=== PATIENT | male | born 1950 | race Caucasian/White ===

== ENCOUNTER 2016-12-17 13:51 | Inpatient (IN) | payer MEDICARE, BC ==
[2016-12-17] MEDS ORDERED: Lactated Ringers 1,000 ML IV SCH (15:00)
[2016-12-17] MEDS ORDERED: Cefepime 1 GM Vial IV SCH (15:45)
--- NOTE | 2016-12-17 15:49 | EDM.PDOC ---
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 He has been at home for the last 3 days sensorium was back to normal for about 24-36 hrs. and then today progressively gotten worse more confused is name did not know where he was at did not know the day continues to have fever wound has remained similar but has had increased edema in that leg he also has discharge of blood from his right ear this has continued. Urinalysis in clinic was unremarkable, chest x-ray done in clinic also shows no acute process - Related Data Allergies Allergy/AdvReac Type Severity Reaction Status Date / Time amoxicillin Allergy Rash Verified 12/17/16 15:04 Home Meds: Home Meds Acetic Acid [Acetic Acid 0.25%] 1 dose TOP ASDIRECTED 12/17/16 [History] Aspirin [Ecotrin] 1 tab PO DAILY 12/17/16 [History] Beclomethasone Dipropionate [Qvar 80 Mcg] 1 puff INH BID 12/17/16 [History] Cetirizine [ZyrTEC] 1 tab PO DAILY 12/17/16 [History] Doxycycline [Vibramycin] 1 cap PO BID 12/17/16 [History] Fish Oil/[place]-3 Fatty Acids [Fish Oil 1,000 MG] 2 cap PO DAILY 12/17/16 [ History] Fluticasone/Salmeterol [Advair Hfa 230-21 Mcg Inhaler] 2 puff INH BID 12/17/16 [ History] Folic Acid 1 tab PO DAILY 12/17/16 [History] Gabapentin [Neurontin] 2 cap PO TID 12/17/16 [History] Methotrexate 3 tab PO ASDIRECTED 12/17/16 [History] Metoprolol Tartrate [Lopressor] 1 tab PO BID 12/17/16 [History] Multivitamin [Multivitamins] 1 cap PO DAILY 12/17/16 [History] Omeprazole 1 cap PO DAILY 12/17/16 [History] oxyCODONE 2 cap PO Q4H PRN 12/17/16 [History] predniSONE [Prednisone] 1 tab PO DAILY 12/17/16 [History] valACYclovir [Valtrex] 1 tab PO BID 12/17/16 [History] Past Medical History Cardiovascular History: Reports: CAD, [place], Stents Respiratory History: Reports: Sleep Apnea Gastrointestinal History: Reports: GERD Genitourinary History: Reports: Chronic Renal Insuffiency, Urinary Incontinence , Other (See Below) Other Genitourinary History: stage 3 CKD Musculoskeletal History: Reports: Fracture Neurological History: Reports: Concussion Immunologic History: Reports: Other (See Below) Other Immunologic History: sarcoidosis Dermatologic History: Reports: Other (See Below) Other Dermatologic History: sarcoidosis. 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 - Past Surgical History HEENT Surgical History: Reports: LASIK, Tonsillectomy Cardiovascular Surgical History: Reports: Coronary Artery Stent GI Surgical History: Reports: Other (See Below) Male Surgical History: Reports: Other (See Below) Other Male Surgeries/Procedures: undescended testicle surgery at 12yrs old Social & Family History - Tobacco Use Smoking Status *Q: Never Smoker - Recreational Drug Use Recreational Drug Use: No ED ROS GENERAL - Review of Systems Review Of Systems: See Below Constitutional: Reports: Fever, Chills, Other (Confused) HEENT: Reports: Ear Discharge Respiratory: Reports: No Symptoms Cardiovascular: Reports: No Symptoms GI/Abdominal: Reports: No Symptoms : Reports: No Symptoms Musculoskeletal: Reports: Leg Pain Skin: Reports: Wound Neurological: Reports: Confusion ED EXAM, GENERAL - Physical Exam Exam: See Below Free Text/Narrative:: General: Elderly male, confused orientated 1 not in any distress HEENT: head is atraumatic normocephalic, eyes pupils equal round reactive to light, sclera clear no conjunctivitis appreciated. Ears clear and mckenzie on the left right tympanic membrane is obscured there is thick purulent drainage as well as dried blood in the canal the canal is swollen, nose: no septal deviation, nares are clear, no blood present. Mouth mucosa is dry and pink no erythema or exudate noted in soft palate, tongue is midline uvula is midline, dentition is intact. Neck: Supple no thyromegaly no tracheal deviation. Nodes: Cervical nodes subclavicular nodes nontender no palpable lymphadenopathy noted. Lungs: clear to auscultation bilaterally with symmetrical respirations, no adventitious noise appreciated. CV: Regular rate and rhythm S1 and S2 appreciated no murmurs rubs or gallops noted. Abdomen: Soft, nontender, no palpable masses or organomegaly appreciated, no distention no guarding bowel sounds are present,. Neuro: Cranial nerves II through XII grossly intact Skin: Multiple superficial wounds in various stages of healing appreciated on the left lower extremity Extremities: +2 pitting edema bilaterally Course - Vital Signs Last Recorded V/S: Last Vital Signs Temp 101.4 F H 12/17/16 16:51 Pulse 100 12/17/16 16:33 Resp 16 12/17/16 16:33 BP 102/81 12/17/16 16:33 Pulse Ox 92 L 12/17/16 16:33 - Orders/Labs/Meds Orders: Active Orders 24 hr Category Date Time Status Vital Signs [RC] Q1H Care 12/17/16 14:50 Active Vital Signs [RC] Q1H Care 12/17/16 15:44 Active Chest 2V [CR] Urgent Exams 12/17/16 15:52 Stop Req CULTURE BLOOD [BC] Urgent Lab 12/17/16 14:50 Received CULTURE BLOOD [BC] Urgent Lab 12/17/16 14:50 Received Cefepime [Maxipime] 2 gm Med 12/17/16 16:00 Active Sodium Chloride 0.9% [Normal Saline] 100 ml IV Q12H Lactated Ringers [Ringers, Lactated] 1,000 ml Med 12/17/16 15:00 Active IV ASDIRECTED Vancomycin 1.4 gm Med 12/17/16 17:00 Active Sodium Chloride 0.9% [Normal Saline] 250 ml IV Q12H Blood Culture x2 Reflex Set [OM.PC] Urgent Oth 12/17/16 14:50 Ordered Medication Orders Lactated Ringer's (Ringers, Lactated) 1,000 mls @ 500 mls/hr IV ASDIRECTED [facility] Last Admin: 12/17/16 15:06 Dose: 500 mls/hr Vancomycin HCl 1.4 gm/ Sodium (Chloride) 250 mls @ 150 mls/hr IV Q12H KIMBER Cefepime HCl 2 gm/ Sodium (Chloride) 100 mls @ 200 mls/hr IV Q12H [facility]BER Last Admin: 12/17/16 16:49 Dose: 200 mls/hr Labs: Laboratory Tests 12/17/16 12/17/16 12/17/16 Range/Units 14:50 14:50 14:50 WBC 6.4 (4.5-11.0) K/uL RBC 3.40 L (4.30-5.90) M/uL Hgb 10.6 L (12.0-15.0) g/dL Hct 33.2 L (40.0-54.0) % MCV 98 (80-98) fL MCH 31 (27-31) pg MCHC 32 (32-36) % Plt Count 188 (150-400) K/uL Neut % (Auto) 78 H (36-66) % Lymph % (Auto) 7 L (24-44) % [place] % (Auto) 13 H (2-6) % Eos % (Auto) 1 L (2-4) % Baso % (Auto) 1 (0-1) % Sodium 140 (140-148) mmol/L Potassium 4.1 (3.6-5.2) mmol/L Chloride 103 (100-108) mmol/L Carbon Dioxide 28 (21-32) mmol/L Anion Gap 9.2 (5.0-14.0) mmol/L BUN 20 H (7-18) mg/dL Creatinine 1.6 H (0.8-1.3) mg/dL Est Cr Clr Drug Dosing 40.98 mL/min Estimated GFR (MDRD) 43 L (>60) Glucose 121 H (74-106) mg/dL Lactic Acid 2.8 H (0.4-2.0) mmol/L Calcium 8.7 (8.5-10.1) mg/dL Total Bilirubin 0.8 (0.2-1.0) mg/dL AST 37 (15-37) U/L ALT 58 (12-78) U/L Alkaline Phosphatase 97 (46-116) U/L C-Reactive Protein 12.60 H (0.0-0.3) mg/dL Total Protein 6.6 (6.4-8.2) g/dL Albumin 2.6 L (3.4-5.0) g/dL Globulin 4.0 H (2.3-3.5) g/dL Albumin/Globulin Ratio 0.7 L (1.2-2.2) Meds: Medications Generic Name Dose Route Start Last Admin Trade Name Marilu PRN Reason Stop Dose Admin Lactated Ringer's 1,000 mls @ 500 mls/hr 12/17/16 15:00 12/17/16 15:06 Ringers, Lactated IV 500 mls/hr ASDIRECTED KIMBER Administration Vancomycin HCl 1.4 gm/ Sodium 250 mls @ 150 mls/hr 12/17/16 17:00 Chloride IV Q12H KIMBER Cefepime HCl 2 gm/ Sodium 100 mls @ 200 mls/hr 12/17/16 16:00 12/17/16 16:49 Chloride IV 200 mls/hr Q12H KIMBER Administration Discontinued Medications Generic Name Dose Route Start Last Admin Trade Name Marilu PRN Reason Stop Dose Admin Acetaminophen 650 mg 12/17/16 16:04 12/17/16 16:41 Tylenol PO 12/17/16 16:05 650 mg NOW ONE Administration Ciprofloxacin/Dexamethasone 1 ml 12/17/16 16:48 Ciprodex Otic Susp EARRT 12/17/16 16:49 NOW STA Vancomycin HCl 1 gm/ Sodium 250 mls @ 150 mls/hr 12/17/16 16:00 Chloride IV Q12H KIMBER - Re-Assessments/Exams Free Text/Narrative Re-Assessment/Exam: 12/17/16 16:15 heart score is 4 Departure - Departure Time of Disposition: 17:22 Disposition: Admitted As Inpatient 66 Condition: Fair Clinical Impression: Sepsis Qualifiers: Sepsis type: sepsis due to unspecified organism Qualified Code(s): A41.9 - Sepsis, unspecified organism - Discharge Information Forms: ED Department Discharge - My Orders Last 24 Hours: My Active Orders 12/17/16 14:50 Vital Signs [RC] Q1H CULTURE BLOOD [BC] Urgent CULTURE BLOOD [BC] Urgent Blood Culture x2 Reflex Set [OM.PC] Urgent 12/17/16 15:00 Lactated Ringers [Ringers, Lactated] 1,000 ml IV ASDIRECTED 12/17/16 15:44 Vital Signs [RC] Q1H 12/17/16 15:52 Chest 2V [CR] Urgent 12/17/16 16:00 Cefepime [Maxipime] 2 gm Sodium Chloride 0.9% [Normal Saline] 100 ml IV Q12H 12/17/16 17:00 Vancomycin 1.4 gm Sodium Chloride 0.9% [Normal Saline] 250 ml IV Q12H - Assessment/Plan Last 24 Hours: My Active Orders 12/17/16 14:50 Vital Signs [RC] Q1H CULTURE BLOOD [BC] Urgent CULTURE BLOOD [BC] Urgent Blood Culture x2 Reflex Set [OM.PC] Urgent 12/17/16 15:00 Lactated Ringers [Ringers, Lactated] 1,000 ml IV ASDIRECTED 12/17/16 15:44 Vital Signs [RC] Q1H 12/17/16 15:52 Chest 2V [CR] Urgent 12/17/16 16:00 Cefepime [Maxipime] 2 gm Sodium Chloride 0.9% [Normal Saline] 100 ml IV Q12H 12/17/16 17:00 Vancomycin 1.4 gm Sodium Chloride 0.9% [Normal Saline] 250 ml IV Q12H Plan: Assessment Acuity = acute Site and laterality = sepsis complicated in a patient with known history of pulmonary and cutaneous sarcoidosis with chronic wound in his left lower extremity with positive varicella-zoster biopsy Etiology = suspicious for bacterial cause Manifestations = fever, confusion Location of injury = Home Lab values = hemoglobin low at 10.6 consistent with normochromic anemia creatinine elevated at 1.6 consistent with acute renal failure stage G IIIB lactic acid elevated at 2.8 consistent lactic acidosis CRP mildly elevated 12.6 albumin low at 2.6 consistent hypoalbuminemia Plan He was given a 1 L fluid bolus challenge, started on cefepime and vancomycin blood cultures are pending discussed case with 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
[2016-12-17] MEDS ORDERED: Cefepime 2 GM in Sodium Chloride 0.9% 100 ML IV SCH (16:00)
[2016-12-17] MEDS ORDERED: Acetaminophen 325 MG Tab PO ONE (16:04)
[2016-12-17] MEDS ORDERED: Ciprofloxacin/Dexamethasone 0.3-0.1% Otic Susp 7.5 ML Bottle EARRT STA (16:48)
[2016-12-17] MEDS ORDERED: Vancomycin 1.4 GM in Sodium Chloride 0.9% 250 ML IV SCH (17:00)
[2016-12-17] MEDS ORDERED: Hydrocortisone/Neomycin/Polymyxin B Otic Susp 10 ML Bottle EARRT SCH (18:00)
--- NOTE | 2016-12-17 18:49 | PCM.HP ---
H&P History of Present Illness - General Date of Service: 12/17/16 Admit Problem/Dx: Admission Diagnosis/Problem Admission Diagnosis/Problem Fever Source of Information: Patient, Family, Old Records, Provider, RN Notes Reviewed History Limitations: Reports: No Limitations - History of Present Illness Initial Comments - Free Text/Narative: Mr. Degroot is a 66-year-old gentleman who is admitted through the emergency department with fever, confusion, and sepsis. He has had ongoing difficulty with ulcerations and lesions of his left lower leg for the past several months. Biopsy of the leg was done approximately 5 months ago and documented sarcoidosis on the anterior aspect. He is had a known history of sarcoidosis for the past several years and has been treated with prednisone in addition to methotrexate. Lesions on the leg persisted despite therapy and then he developed lesions on the posterior aspect the leg in early October. He was seen and evaluated in [place] where he was hospitalized, biopsy of the lesions confirmed herpes zoster. Was also associated bacterial infection with cellulitis , according to his they grow out Escherichia coli as well as Pseudomonas and he was treated with IV antibiotics. Since discharge from the hospital [place] they've returned to [place] and have been following with his primary care physician as well as dermatology at the [facility] in [place]. He was seen there approximately one week ago and felt to have ongoing difficulty with the herpes zoster and was started on Valcyclovir. 5 days prior to admission he developed significant temperature elevation associated with confusion, he was seen and evaluated in the clinic and referred to the emergency room at [facility] in [facility] for further specialty evaluation. He was hospitalized overnight and given IV vancomycin and cefepime area apparently the next morning was afebrile with a normal white count and was discharged home. He did relatively well through the weekend but today redeveloped significant temperature elevation and confusion. Evaluation in the clinic included a chest x -ray that was normal showing no obvious infiltrates and a normal urinalysis. He was then referred to the emergency department for further assessment. Laboratory studies are unremarkable, chronic kidney disease is stable, white blood cell count was normal, CRP was elevated at 12. Over the past week is also had bloody drainage from his right ear, he is status post tube placement in the ear 2-1/2 years ago. He denies significant pain in the ear or his head. - Related Data Allergies/Adverse Reactions: Allergies Allergy/AdvReac Type Severity Reaction Status Date / Time amoxicillin Allergy Rash Verified 12/17/16 15:04 Home Medications: Home Meds Acetic Acid [Acetic Acid 0.25%] 1 dose TOP ASDIRECTED 12/17/16 [History] Aspirin [Ecotrin] 1 tab PO DAILY 12/17/16 [History] Beclomethasone Dipropionate [Qvar 80 Mcg] 1 puff INH BID 12/17/16 [History] Cetirizine [ZyrTEC] 1 tab PO DAILY 12/17/16 [History] Doxycycline [Vibramycin] 1 cap PO BID 12/17/16 [History] Fish Oil/[place]-3 Fatty Acids [Fish Oil 1,000 MG] 2 cap PO DAILY 12/17/16 [ History] Fluticasone/Salmeterol [Advair Hfa 230-21 Mcg Inhaler] 2 puff INH BID 12/17/16 [ History] Folic Acid 1 tab PO DAILY 12/17/16 [History] Gabapentin [Neurontin] 2 cap PO TID 12/17/16 [History] Methotrexate 3 tab PO ASDIRECTED 12/17/16 [History] Metoprolol Tartrate [Lopressor] 1 tab PO BID 12/17/16 [History] Multivitamin [Multivitamins] 1 cap PO DAILY 12/17/16 [History] Omeprazole 1 cap PO DAILY 12/17/16 [History] oxyCODONE 2 cap PO Q4H PRN 12/17/16 [History] predniSONE [Prednisone] 1 tab PO DAILY 12/17/16 [History] valACYclovir [Valtrex] 1 tab PO BID 12/17/16 [History] Past Medical History Cardiovascular History: Reports: CAD, [place], Stents Respiratory History: Reports: Sleep Apnea Gastrointestinal History: Reports: GERD Genitourinary History: Reports: Chronic Renal Insuffiency, Urinary Incontinence , Other (See Below) Other Genitourinary History: stage 3 CKD Musculoskeletal History: Reports: Fracture Neurological History: Reports: Concussion Immunologic History: Reports: Other (See Below) Other Immunologic History: sarcoidosis Dermatologic History: Reports: Other (See Below) Other Dermatologic History: sarcoidosis. 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 - Past Surgical History HEENT Surgical History: Reports: LASIK, Tonsillectomy Cardiovascular Surgical History: Reports: Coronary Artery Stent GI Surgical History: Reports: Other (See Below) Male Surgical History: Reports: Other (See Below) Other Male Surgeries/Procedures: undescended testicle surgery at 12yrs old Social & Family History - Tobacco Use Smoking Status *Q: Never Smoker - Recreational Drug Use Recreational Drug Use: No H&P Review of Systems - Review of Systems: Review Of Systems: See Below General: Reports: Fever, Chills, Malaise, Weakness, Diaphoresis, Decreased Appetite HEENT: Reports: Other (Bloody drainage right ear). Denies: Ear Pain, Eye Pain, Headaches, Sinus Congestion, Sore Throat Pulmonary: Reports: Cough (Chronic). Denies: Shortness of Breath, Wheezing, Pleuritic Chest Pain, Sputum, Hemoptysis Cardiovascular: Reports: No Symptoms Gastrointestinal: Reports: No Symptoms Genitourinary: Reports: No Symptoms Musculoskeletal: Reports: No Symptoms Skin: Reports: Other (Several relatively large ulcers of the posterior and anterior aspect of the right lower leg) Psychiatric: Reports: Confusion, Hallucinations Neurological: Reports: No Symptoms Hematologic/Lymphatic: Reports: No Symptoms Immunologic: Reports: No Symptoms Exam - Exam Exam: See Below - Vital Signs Vital Signs: Last Vital Signs Temp 101.4 F H 12/17/16 16:51 Pulse 100 12/17/16 16:33 Resp 16 12/17/16 16:33 BP 102/81 12/17/16 16:33 Pulse Ox 92 L 12/17/16 16:33 Weight: 204 lb - Exam Quality Assessment: DVT Prophylaxis HEENT: Conjunctiva Clear, Mucosa Moist & [place], Nares Patent, Normal Nasal Septum , Posterior Pharynx Clear, Pupils Equal, Other (Bloody drainage from the right ear with inflammation in the external auditory canal) Neck: Supple, Trachea Midline, +2 Carotid Pulse wo Bruit Lungs: Clear to Auscultation, Normal Respiratory Effort Cardiovascular: Regular Rate, Regular Rhythm, Normal S1, Normal S2. No: Systolic Murmur, Diastolic Murmur GI/Abdominal Exam: Normal Bowel Sounds, Soft, Non-Tender, No Organomegaly, No Distention, No Mass Back Exam: Normal Inspection, Full Range of Motion, NT Extremities: Normal Range of Motion, Pedal Edema, Redness, Other (Ulcers right lower leg) Skin: Warm, Dry, Intact Neurological: Cranial Nerves Intact, Strength Equal Bilateral, Normal Speech, Normal Tone, Sensation Intact. No: Focal Deficit Neuro Extensive - Mental Status: Alert, Oriented x3, Normal Mood/Affect, Memory Loss-Recent Events Psychiatric: Hallucinations - Patient Data Result Diagrams: 12/17/16 14:50 12/17/16 14:50 *Q Meaningful Use (ADM) - VTE *Q VTE Criteria *Q: - VTE Risk Assess *Q Each Risk Factor Represents 1 Point: Swollen Legs, Current, Obesity (BMI greater than 30), Sepsis, Less than 1 Month, Serious Lung Disease Including Pneumonia, Less than 1 Month Total Score 1 Point Risk Factors: 4 Each Risk Factor Represents 2 Points: Age 60 - 74 Years Total Score 2 Point Risk Factors: 2 Each Risk Factor Represents 3 Points: None Total Score 3 Point Risk Factors: 0 Each Risk Factor Represents 5 Points: None Total Score 5 Point Risk Factors: 0 Venous Thromboembolism Risk Factor Score *Q: 6 - Stroke *Q Stroke Criteria *Q: - AMI *Q AMI Criteria *Q: Problem List Initiated/Reviewed/Updated: Yes Orders Last 24hrs: Active Orders 24 hr Category Date Time Status Resuscitation Status Routine Resus Stat 12/17/16 18:06 Ordered Medication Orders Lactated Ringer's (Ringers, Lactated) 1,000 mls @ 500 mls/hr IV ASDIRECTED [facility] Last Admin: 12/17/16 15:06 Dose: 500 mls/hr Vancomycin HCl 1.4 gm/ Sodium (Chloride) 250 mls @ 150 mls/hr IV Q12H [facility] Last Admin: 12/17/16 17:22 Dose: 150 mls/hr Cefepime HCl 2 gm/ Sodium (Chloride) 100 mls @ 200 mls/hr IV Q12H [facility] Last Admin: 12/17/16 16:49 Dose: 200 mls/hr Neomycin/Polymyxin/Hydrocortisone (Cortisporin Otic Susp) 0 ml EARRT QID [facility] Last Admin: 12/17/16 18:12 Dose: 4 drop Assessment/Plan Comment:: ASSESSMENT AND PLAN FEVER AND SEPSIS-history over the past several months of ulcerations involving the right lower leg. This would seem to be the most likely source of ongoing infection, ulcers appear to be healing and there does not appear to be associated infection in the skin. He also has a history over the past week of bloody drainage from his right ear although there is no tenderness and no associated headache or pain. On examination the external auditory canal appears to be inflamed. No other obvious source of infection is been identified on current evaluation. -Broad-spectrum IV antibiotics; vancomycin, cefepime, and levofloxacin. Given recent history of antibiotic use with Pseudomonas cultured in [place]. -Blood cultures pending -CT scan of the head to evaluate for infection associated with right ear drainage -Aggressive IV fluid replacement per sepsis protocol -Repeat lactic acid level later this evening CHRONIC LEG ULCERATIONS RIGHT LOWER LEG-present for some time, no evidence of obvious cellulitis at this point. Question as to whether there could be deeper seated infection -Will ask Dr. Herring to review in a.m. for recommendations concerning ongoing management -Hold valacyclovir BLOODY DRAINAGE RIGHT EAR-at a minimum appears to have otitis externa area -CT scan as above -Cortisporin optic solution 4 times daily HISTORY OF SARCOIDOSIS-previous lung involvement as well as kidney involvement, biopsies from the anterior aspect of the right lower leg showed evidence of active sarcoidosis. -Continue methotrexate and prednisone CHRONIC KIDNEY DISEASE STAGE III-creatinine at baseline -Closely monitor urine output and renal function during hospital stay MAINTENANCE ISSUES -DVT prophylaxis; Lovenox 40 mg subcutaneous daily -GI prophylaxis; continue outpatient PPI therapy -Moody catheter; not indicated -Nutrition; regular diet -Nicotine dependence; not required CODE STATUS-FULL CODE ADMISSION STATUS-patient will be admitted to inpatient status, expect at least a 2 night hospital stay for evaluation and management of problems as outlined above. At the time of this admission I do not reasonably expected evaluation and management of this problem will require more than a 96 hour hospital stay. DISPOSITION-anticipate discharge to home after the hospital stay. PRIMARY CARE PROVIDER-patient receives primary care and subspecialty care at the [facility] in [place]
[2016-12-17] MEDS ORDERED: Ondansetron 4 MG/2 ML SDV IV PRN (19:28)
[2016-12-17] MEDS ORDERED: Lactated Ringers 500 ML IV SCH (19:28)
[2016-12-17] MEDS ORDERED: Sodium Chloride 0.9% 10 ML Syringe FLUSH PRN (19:28)
[2016-12-17] MEDS ORDERED: Polyethylene Glycol 3350 Powder 17 GM Packet PO PRN (19:28)
[2016-12-17] MEDS ORDERED: Enoxaparin 40 MG/0.4 ML Syringe SUBCUT SCH (19:28)
[2016-12-17] MEDS ORDERED: Magnesium Hydroxide 400 MG/5 ML Susp 30 ML Cup PO PRN (19:28)
[2016-12-17] MEDS ORDERED: Vancomycin 1 GM SDV IV SCH (19:28)
[2016-12-17] MEDS ORDERED: Docusate Sodium 100 MG Cap PO PRN (19:28)
[2016-12-17] MEDS ORDERED: Levofloxacin/Dextrose 5%-Water 500 MG in Premix Bag 1 BAG IV SCH (20:00)
[2016-12-17] MEDS: Metoprolol Tartrate 50 MG Tab PO SCH (21:15)
[2016-12-17] MEDS: Gabapentin 100 MG Cap PO SCH (21:15)
[2016-12-17] MEDS: Melatonin 3 MG Tab PO SCH (21:15)
[2016-12-17] MEDS: Hydrocortisone/Neomycin/Polymyxin B Otic Susp 10 ML Bottle EARBOTH SCH (21:17)
[2016-12-17] MEDS: Formoterol/Mometasone 200-5 MCG 8.8 GM Inhaler IH SCH (21:33)
[2016-12-17] MEDS: Lactated Ringers 1,000 ML IV SCH (22:40)
[2016-12-18] MEDS: oxyCODONE 5 MG Tab PO PRN (04:15)
[2016-12-18] MEDS: Cefepime 1 GM in Sodium Chloride 0.9% 50 ML IV SCH ×2 (04:33→16:38)
[2016-12-18] MEDS: Hydrocortisone/Neomycin/Polymyxin B Otic Susp 10 ML Bottle EARBOTH SCH ×4 (06:22→21:15)
[2016-12-18] MEDS: Lactated Ringers 1,000 ML IV SCH (07:03)
[2016-12-18] MEDS: Acetaminophen 325 MG Tab PO PRN ×3 (07:55→16:46)
[2016-12-18] MEDS ORDERED: predniSONE 5 MG Tab PO SCH (08:00)
[2016-12-18] MEDS: Vancomycin 1.4 GM in Sodium Chloride 0.9% 250 ML IV SCH ×2 (08:29→19:35)
[2016-12-18] MEDS: Metoprolol Tartrate 50 MG Tab PO SCH ×2 (08:30→21:16)
[2016-12-18] MEDS: Pantoprazole 40 MG Tab.CR PO SCH (08:30)
[2016-12-18] MEDS: Gabapentin 100 MG Cap PO SCH ×3 (08:31→21:16)
[2016-12-18] MEDS: Albuterol 0.083% 2.5 MG/3 ML Neb Soln NEB PRN (08:57)
[2016-12-18] MEDS ORDERED: Aspirin 325 MG Tab.EC PO SCH (09:00)
[2016-12-18] MEDS ORDERED: Folic Acid 1 MG Tab PO SCH (09:00)
[2016-12-18] MEDS ORDERED: Cetirizine 10 MG Tab PO SCH (09:00)
[2016-12-18] MEDS ORDERED: Fish Oil/Omega-3 Fatty Acids 1 Gm Cap PO SCH (09:00)
[2016-12-18] MEDS: QVAR 80 MCG INH SCH ×2 (09:01→21:15)
[2016-12-18] MEDS: ADVAIR INH SCH ×2 (09:02→21:15)
[2016-12-18] MEDS ORDERED: Gadoteridol 279.3 MG/ML 20 ML SDV IV PRN ×2 (10:14→14:01)
[2016-12-18] MEDS: Magnesium Sulfate/Water 2 GM in Premix Bag 1 BAG IV SCH ×2 (11:06→17:27)
[2016-12-18] MEDS: Formoterol/Mometasone 200-5 MCG 8.8 GM Inhaler IH SCH (11:27)
--- NOTE | 2016-12-18 14:32 | MR ---
Left leg MRI. History: Eval for infection. Technique: The lower extremities were evaluated in the coronal, sagittal, and axial planes utilizing T1 pre and postcontrast with and without fat saturation and T2 with fat saturation techniques. Findings: There is subcutaneous edema bilaterally. At the level of the distal left leg and ankle is a fluid collection which encompasses the vascular structures at the ankle measuring 2.8 x 1.7 x 4.7 cm. The adjacent muscles demonstrate normal signal. There is no encapsulation or evidence for enhanc ement to suggest abscess. There are no findings of myositis. There is normal marrow signal within th e bones. Impression: 1. Bilateral subcutaneous edema. No evidence for abscess. 2. Nonspecific fluid collection at the level of the ankle which is intramuscular. The fluid is likel y related to the subcutaneous edema.
--- NOTE | 2016-12-18 16:29 | PCM.PN ---
- General Info Date of Service: 12/18/16 Functional Status: Reports: Tolerating Diet, Urinating - Review of Systems General: Reports: Fever, Weakness, Chills Pulmonary: Reports: No Symptoms Cardiovascular: Reports: No Symptoms Gastrointestinal: Reports: No Symptoms Systems Review Comment:: Mr. Degroot has continued to experience fevers, vital signs have stabilized since admission with no further evidence of sepsis. MRI of the left lower leg was obtained today and showed no evidence of deep-seated infection, abscess or osteomyelitis. CT scan of the head obtained last night showed no area of infection associated with the right ear. Drainage from the right ear seems to be better since admission. Dr. Herring saw the patient this morning and did not feel that ulcers in the left leg were source of current infection or fever. - Patient Data Vitals - Most Recent: Last Vital Signs Temp 99.8 F 12/18/16 14:27 Pulse 93 12/18/16 15:20 Resp 24 H 12/18/16 15:20 BP 131/82 12/18/16 15:20 Pulse Ox 91 L 12/18/16 15:20 Weight - Most Recent: 204 lb 0.005 oz I&O - Last 24 Hours: Intake & Output 12/18/16 12/18/16 12/18/16 06:59 14:59 22:59 Intake Total 660 Output Total 650 125 Balance -650 535 Lab Results Last 24 Hours: Laboratory Results - last 24 hr 12/17/16 12/18/16 12/18/16 Range/Units 22:00 04:20 04:20 WBC 5.5 (4.5-11.0) K/uL RBC 3.24 L (4.30-5.90) M/uL Hgb 10.0 L (12.0-15.0) g/dL Hct 31.5 L (40.0-54.0) % MCV 97 (80-98) fL MCH 31 (27-31) pg MCHC 32 (32-36) % Plt Count 181 (150-400) K/uL Neut % (Auto) 71 H (36-66) % Lymph % (Auto) 11 L (24-44) % Dougherty % (Auto) 16 H (2-6) % Eos % (Auto) 1 L (2-4) % Baso % (Auto) 0 (0-1) % Sodium 141 (140-148) mmol/L Potassium 4.0 (3.6-5.2) mmol/L Chloride 105 (100-108) mmol/L Carbon Dioxide 29 (21-32) mmol/L Anion Gap 7.1 (5.0-14.0) mmol/L BUN 20 H (7-18) mg/dL Creatinine 1.5 H (0.8-1.3) mg/dL Est Cr Clr Drug Dosing 43.71 mL/min Estimated GFR (MDRD) 47 L (>60) Glucose 97 (74-106) mg/dL Lactic Acid 1.9 (0.4-2.0) mmol/L Calcium 8.6 (8.5-10.1) mg/dL Magnesium 1.6 L (1.8-2.4) mg/dL Med Orders - Current: Current Medications Acetaminophen (Tylenol) 650 mg PO Q4H PRN PRN Reason: Pain (Mild 1-3)/fever Last Admin: 12/18/16 11:48 Dose: 650 mg Acetic Acid (Acetic Acid 0.25%) 0 ml IRR BID [facility] Albuterol (Proventil Neb Soln) 2.5 mg NEB Q4H PRN PRN Reason: Shortness Of Breath/wheezing Last Admin: 12/18/16 08:57 Dose: 2.5 mg Aspirin (Ecotrin) 325 mg PO DAILY [facility] Last Admin: 12/18/16 08:30 Dose: 325 mg Cetirizine HCl (Zyrtec) 10 mg PO DAILY [facility] Last Admin: 12/18/16 08:31 Dose: 10 mg Docusate Sodium (Colace) 100 mg PO BID PRN PRN Reason: Constipation Fish Oil (Fish Oil) 2 gm PO DAILY [facility] Last Admin: 12/18/16 08:30 Dose: 2 gm Folic Acid (Folic Acid) 1 mg PO DAILY [facility] Last Admin: 12/18/16 08:30 Dose: 1 mg Gabapentin (Neurontin) 200 mg PO TID [facility] Last Admin: 12/18/16 14:30 Dose: 200 mg Cefepime HCl 1 gm/ Sodium (Chloride) 50 mls @ 100 mls/hr IV Q12H [facility] Last Admin: 12/18/16 04:33 Dose: 100 mls/hr Levofloxacin/Dextrose 500 mg/ (Premix) 100 mls @ 100 mls/hr IV Q24H [facility] Vancomycin HCl 1.4 gm/ Sodium (Chloride) 250 mls @ 167 mls/hr IV Q12H [facility] Last Admin: 12/18/16 08:29 Dose: 167 mls/hr Magnesium Sulfate 2 gm/ Premix 50 mls @ 25 mls/hr IV Q6H [facility] Stop: 12/18/16 17:59 Last Admin: 12/18/16 11:06 Dose: 25 mls/hr Lactated Ringer's (Ringers, Lactated) 1,000 mls @ 50 mls/hr IV ASDIRECTED [facility] Magnesium Hydroxide (Milk Of Magnesia) 30 ml PO Q12H PRN PRN Reason: Constipation Melatonin (Melatonin) 9 mg PO BEDTIME [facility] Last Admin: 12/17/16 21:15 Dose: 9 mg Metoprolol Tartrate (Lopressor) 50 mg PO BID [facility] Last Admin: 12/18/16 08:30 Dose: 50 mg Neomycin/Polymyxin/Hydrocortisone (Cortisporin Otic Susp) 0 ml EARBOTH QID [facility] Last Admin: 12/18/16 11:06 Dose: 2 drop Qvar 80 Mcg (Ptom) 0 puff INH BIDRT [facility] Last Admin: 12/18/16 09:01 Dose: 1 puff Ondansetron HCl (Zofran) 4 mg IV Q4H PRN PRN Reason: Nausea/Vomiting Oxycodone HCl (Oxycodone) 10 mg PO Q4H PRN PRN Reason: Pain Last Admin: 12/18/16 04:15 Dose: 10 mg Pantoprazole Sodium (Protonix) 40 mg PO ACBREAKFAST [facility] Last Admin: 12/18/16 08:30 Dose: 40 mg Advair Hfa 230mcg/ (21mcg (Ptom)) 0 each INH BIDRT [facility] Last Admin: 12/18/16 09:02 Dose: 2 each Polyethylene Glycol (Miralax) 17 gm PO DAILY PRN PRN Reason: Constipation Prednisone (Prednisone) 5 mg PO DAILY@0800 [facility] Last Admin: 12/18/16 08:30 Dose: 5 mg Sodium Chloride (Saline Flush) 10 ml FLUSH ASDIRECTED PRN PRN Reason: Keep Vein Open Discontinued Medications Acetaminophen (Tylenol) 650 mg PO NOW ONE Stop: 12/17/16 16:05 Last Admin: 12/17/16 16:41 Dose: 650 mg Ciprofloxacin/Dexamethasone (Ciprodex Otic Susp) 1 ml EARRT NOW STA Stop: 12/17/16 16:49 Last Admin: 12/17/16 18:12 Dose: Not Given Enoxaparin Sodium (Lovenox) 40 mg SUBCUT DAILY [facility] Last Admin: 12/17/16 21:14 Dose: 40 mg Enoxaparin Sodium (Lovenox) 40 mg SUBCUT BEDTIME [facility] Gadoteridol (Prohance) 20 ml IV . DIRECTED PRN PRN Reason: RADIOLOGY EXAM Stop: 12/18/16 10:15 Gadoteridol (Prohance) 20 ml IV . DIRECTED PRN PRN Reason: RADIOLOGY EXAM Stop: 12/18/16 14:30 Last Admin: 12/18/16 14:11 Dose: 20 ml Lactated Ringer's (Ringers, Lactated) 1,000 mls @ 500 mls/hr IV ASDIRECTED [facility] Last Admin: 12/17/16 15:06 Dose: 500 mls/hr Vancomycin HCl 1 gm/ Sodium (Chloride) 250 mls @ 150 mls/hr IV Q12H [facility] Last Admin: 12/18/16 11:27 Dose: Not Given Vancomycin HCl 1.4 gm/ Sodium (Chloride) 250 mls @ 150 mls/hr IV Q12H [facility] Last Admin: 12/17/16 17:22 Dose: 150 mls/hr Cefepime HCl 2 gm/ Sodium (Chloride) 100 mls @ 200 mls/hr IV Q12H [facility] Last Admin: 12/17/16 16:49 Dose: 200 mls/hr Lactated Ringer's (Ringers, Lactated) 500 mls @ 500 mls/hr IV .BOLUS [facility] Stop: 12/17/16 23:29 Last Admin: 12/17/16 20:35 Dose: 500 mls/hr Lactated Ringer's (Ringers, Lactated) 1,000 mls @ 125 mls/hr IV ASDIRECTED [facility] Last Admin: 12/18/16 07:03 Dose: 125 mls/hr Levofloxacin/Dextrose 500 mg/ (Premix) 100 mls @ 100 mls/hr IV Q48H [facility] Last Admin: 12/17/16 20:35 Dose: 100 mls/hr Vancomycin HCl 1.25 gm/ Sodium (Chloride) 250 mls @ 166.667 mls/hr IV Q24H [facility] Mometasone Furoate/Formoterol Fumar (Dulera 200-5 Mcg) 2 puff IH BIDRT [facility] Last Admin: 12/18/16 11:27 Dose: Not Given Neomycin/Polymyxin/Hydrocortisone (Cortisporin Otic Susp) 0 ml EARRT QID [facility] Last Admin: 12/17/16 18:12 Dose: 4 drop Vancomycin HCl (Vancomycin) 1 gm IV .PHARMACY TO DOSE [facility] - Exam Quality Assessment: DVT Prophylaxis General: Alert, Cooperative, No Acute Distress Lungs: Clear to Auscultation, Normal Respiratory Effort Cardiovascular: Regular Rate, Regular Rhythm, No Murmurs GI/Abdominal Exam: Normal Bowel Sounds, Soft, Non-Tender, No Organomegaly, No Distention Extremities: No Pedal Edema, Other (ulcers left calf) - Problem List Review Problem List Initiated/Reviewed/Updated: Yes - My Orders Last 24 Hours: My Active Orders 12/17/16 18:06 Resuscitation Status Routine 12/17/16 19:28 Patient Status [ADT] Routine Intake and Output [RC] QSHIFT Notify Provider Consults [RC] ASDIRECTED Notify Provider Vital Signs [RC] ASDIRECTED Oxygen Therapy [RC] PRN Peripheral IV Care [RC] Q12H RT Aerosol Therapy [RC] ASDIRECTED Up With Assistance [RC] ASDIRECTED VTE/DVT Education [RC] Per Unit Routine Vital Signs [RC] Q4H Consult to Physician [CONS] Routine Head wo Cont [CT] Stat Acetaminophen [Tylenol] 650 mg PO Q4H PRN Albuterol [Proventil Neb Soln] 2.5 mg NEB Q4H PRN Docusate Sodium [Colace] 100 mg PO BID PRN Magnesium Hydroxide [Milk of Magnesia] 30 ml PO Q12H PRN Ondansetron [Zofran] 4 mg IV Q4H PRN Polyethylene Glycol 3350 [MiraLAX] 17 gm PO DAILY PRN Sodium Chloride 0.9% [Saline Flush] 10 ml FLUSH ASDIRECTED PRN Peripheral IV Insertion Adult [OM.PC] Routine 12/17/16 21:00 Melatonin 9 mg PO BEDTIME 12/17/16 22:00 Hydrocort/Neomycin/Polymyxin B [Cortisporin Otic Susp] See Dose Instructions EARBOTH QID 12/17/16 Dinner Regular Diet [DIET] 12/18/16 04:00 Cefepime [Maxipime] 1 gm Sodium Chloride 0.9% [Normal Saline] 50 ml IV Q12H 12/18/16 08:00 Vancomycin 1.4 gm Sodium Chloride 0.9% [Normal Saline] 250 ml IV Q12H 12/18/16 09:00 Patient's Own Medication [Ptom] 0 each INH BIDRT 12/18/16 10:00 Magnesium Sulfate/Water [Magnesium Sulfate 2 GM in Water 50 ML] 2 gm Premix Bag 1 bag IV Q6H 12/18/16 16:30 Lactated Ringers [Ringers, Lactated] 1,000 ml IV ASDIRECTED 12/18/16 21:00 Levofloxacin/Dextrose 5%-Water [Levaquin in D5W 500 MG/100 ML] 500 mg Premix Bag 1 bag IV Q24H 12/19/16 07:45 VANCOMYCIN TROUGH [CHEM] Timed - Plan Plan:: ASSESSMENT AND PLAN FEVER AND SEPSIS-history over the past several months of ulcerations involving the right lower leg. at present does not appear to have active infection in the leg to explain current fever. MRI of the leg showed no evidence of abscess or osteomyelitis. CT scan of the head showed no evidence of deeper seeded infection related to drainage from the right ear. Chest x-ray obtained at the clinic showed no infiltrates and urinalysis was clear. Discussed with his assistant pastry chef at the [facility] in [place], plan will be to transfer their in the morning for further subspecialty evaluation and management. Lactic acid level has normalized and he has been hemodynamically stable with no further evidence of sepsis -Broad-spectrum IV antibiotics; vancomycin, cefepime, and levofloxacin. Given recent history of antibiotic use with Pseudomonas cultured in [place]. -Blood cultures pending -decrease IV rate to 50 mL per hour -Repeat lactic acid level later this evening CHRONIC LEG ULCERATIONS RIGHT LOWER LEG-present for some time, no evidence of obvious cellulitis at this point. -continue current wound management per Dr. 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 -Continue methotrexate and prednisone CHRONIC KIDNEY DISEASE STAGE III-creatinine at baseline -Closely monitor urine output and renal function during hospital stay MAINTENANCE ISSUES -DVT prophylaxis; Lovenox 40 mg subcutaneous daily -GI prophylaxis; continue outpatient PPI therapy -Moody catheter; not indicated -Nutrition; regular diet -Nicotine dependence; not required CODE STATUS-FULL CODE ADMISSION STATUS-patient will be admitted to inpatient status, expect at least a 2 night hospital stay for evaluation and management of problems as outlined above. At the time of this admission I do not reasonably expected evaluation and management of this problem will require more than a 96 hour hospital stay. DISPOSITION-anticipate transfer to [facility] in [facility] tomorrow morning PRIMARY CARE PROVIDER-patient receives primary care and subspecialty care at the [facility] [place]
[2016-12-18] MEDS ORDERED: Lactated Ringers 1,000 ML IV SCH (16:30)
--- NOTE | 2016-12-18 16:44 | PCM.DCSUM1 ---
Discharge Summary - Hospital Course Brief History: Mr. Degroot is a 66-year-old gentleman who was admitted through the emergency department for further evaluation and management of fever with sepsis. - Discharge Data Discharge Date: 12/19/16 Discharge Disposition: DC/Tfer to Acute Hospital 02 Condition: Serious - Discharge Diagnosis/Problem(s) (1) Fever SNOMED Code(s): 998165156 ICD Code: R50.9 - FEVER, UNSPECIFIED Status: Acute Current Visit: Yes (2) Sarcoidosis SNOMED Code(s): 21334021 ICD Code: D86.9 - SARCOIDOSIS, UNSPECIFIED Status: Acute Current Visit: Yes (3) Herpes zoster SNOMED Code(s): 2642388 ICD Code: B02.9 - ZOSTER WITHOUT COMPLICATIONS Status: Acute Current Visit: Yes (4) CKD (chronic kidney disease) stage 3, GFR 30-59 ml/min SNOMED Code(s): 982175462 ICD Code: N18.3 - CHRONIC KIDNEY DISEASE, STAGE 3 (MODERATE) Status: Acute Current Visit: Yes (5) Sepsis SNOMED Code(s): 66032477 ICD Code: A41.9 - SEPSIS, UNSPECIFIED ORGANISM Status: Acute Current Visit: Yes Qualifiers: Sepsis type: sepsis due to unspecified organism Qualified Code(s): A41.9 - Sepsis, unspecified organism - Patient Summary/Data Consults: Consultations 12/17/16 19:28 Consult to Physician [CONS] Routine Consulting Provider: Brady Herring Call Completed to Consulting Physician: Yes Reason for Consult: Chronic ulcerations right lower leg Hospital Course: Mr. Degroot is a 66-year-old gentleman who was admitted through the emergency department with fever, confusion, and sepsis. He has had ongoing difficulty with ulcerations and lesions of his left lower leg for the past several months. Biopsy of the leg was done approximately 5 months ago and documented sarcoidosis on the anterior aspect. He has had a known history of sarcoidosis for the past several years and has been treated with prednisone in addition to methotrexate. Lesions on the leg persisted despite therapy and then he developed lesions on the posterior aspect the leg in early October. He was seen and evaluated in [place] where he was hospitalized, biopsy of the lesions confirmed herpes zoster. There was also associated bacterial infection with cellulitis, according to his they grow out Escherichia coli as well as Pseudomonas and he was treated with IV antibiotics. Since discharge from the hospital [place] they've returned to [place] and have been following with his primary care physician as well as dermatology at the [facility] in [place]. He was seen there approximately one week ago and felt to have ongoing difficulty with the herpes zoster and was started on Valcyclovir. 5 days prior to admission he developed significant temperature elevation associated with confusion, he was seen and evaluated in the clinic and referred to the emergency room at [facility] in [facility] for further specialty evaluation. He was hospitalized overnight and given IV vancomycin and cefepime. Apparently the next morning was afebrile with a normal white count and was discharged home. He did relatively well through the weekend but today redeveloped significant temperature elevation and confusion. Evaluation in the clinic included a chest x-ray that was normal showing no obvious infiltrates and a normal urinalysis. He was then referred to the emergency department for further assessment. Laboratory studies are unremarkable, chronic kidney disease is stable, white blood cell count was normal, CRP was elevated at 12. Over the past week has also had bloody drainage from his right ear, he is status post tube placement in the ear 2-1/2 years ago. He denies significant pain in the ear or his head. Blood cultures were obtained in the emergency department and on admission he was started on broad-spectrum IV antibiotic therapy with vancomycin, levofloxacin, and cefepime, because of his recent history of IV antibiotic use as well as previous culture positive for Pseudomonas. He was given vigorous IV fluid replacement for management of sepsis, with mild elevation in lactic acid level as well as borderline low blood pressure and sinus tachycardia. He stabilized overnight and had no further hemodynamic instability. Following day he did have persistent temperature elevations up to 102-103. CT scan of the head was obtained shortly after admission and showed no evidence of deeper seeded infection associated with his right ear. He was started on Cortisporin optic drops for otitis externa. The following morning after admission he was seen and evaluated by Dr. Herring who also felt that the ulcers on the left leg did not appear to be the source of current infection or fever. MRI was obtained of the left lower leg and showed no evidence of abscess or osteomyelitis. Current clinical course and findings were reviewed with his doffer at the [facility] in [place] as well as the emergency medical technician/driver guest relations agent at [facility] in [place]. They've agreed to accept the patient in transfer for further subspecialty evaluation and management. He will be transferred to [facility] via [facility], leaving early tomorrow morning. - Patient Instructions Diet: Usual Diet as Tolerated Activity: As Tolerated Other/Special Instructions: Patient will be transferred to [facility] in [facility] via [facility]. - Discharge Plan Home Medications: Home Meds Acetic Acid [Acetic Acid 0.25%] 1 dose TOP ASDIRECTED 12/17/16 [History] Aspirin [Ecotrin] 1 tab PO DAILY 12/17/16 [History] Beclomethasone Dipropionate [Qvar 80 Mcg] 1 puff INH BID 12/17/16 [History] Cetirizine [ZyrTEC] 1 tab PO DAILY 12/17/16 [History] Fish Oil/Parshall-3 Fatty Acids [Fish Oil 1,000 MG] 2 cap PO DAILY 12/17/16 [ History] Fluticasone/Salmeterol [Advair Hfa 230-21 Mcg Inhaler] 2 puff INH BID 12/17/16 [ History] Folic Acid 1 tab PO DAILY 12/17/16 [History] Gabapentin [Neurontin] 2 cap PO TID 12/17/16 [History] Methotrexate 3 tab PO ASDIRECTED 12/17/16 [History] Metoprolol Tartrate [Lopressor] 1 tab PO BID 12/17/16 [History] Multivitamin [Multivitamins] 1 cap PO DAILY 12/17/16 [History] Omeprazole 1 cap PO DAILY 12/17/16 [History] oxyCODONE 2 cap PO Q4H PRN 12/17/16 [History] predniSONE [Prednisone] 1 tab PO DAILY 12/17/16 [History] Cefepime [Maxipime] 1 gm IV Q12H vial 12/18/16 [Rx] Hydrocort/Neomycin/Polymyxin B [Cortisporin Otic Susp] 2 drop EARRT QID #0 bottle 12/18/16 [Rx] Levofloxacin/Dextrose 5%-Water [Levaquin in D5W 500 MG/100 ML] 500 mg IV Q24H bag 12/18/16 [Rx] Vancomycin 1.4 gm IV Q12H sdv 12/18/16 [Rx] Referrals: Rajesh Joyce MD [Primary Care Provider] - - Patient Data Vitals - Most Recent: Last Vital Signs Temp 99.8 F 12/18/16 14:27 Pulse 93 12/18/16 15:20 Resp 24 H 12/18/16 15:20 BP 131/82 12/18/16 15:20 Pulse Ox 91 L 12/18/16 15:20 Weight - Most Recent: 204 lb 0.005 oz I&O - Last 24 hours: Intake & Output 12/18/16 12/18/16 12/18/16 06:59 14:59 22:59 Intake Total 660 100 Output Total 650 125 Balance -650 535 100 Lab Results - Last 24 hrs: Laboratory Results - last 24 hr 12/17/16 12/18/16 12/18/16 Range/Units 22:00 04:20 04:20 WBC 5.5 (4.5-11.0) K/uL RBC 3.24 L (4.30-5.90) M/uL Hgb 10.0 L (12.0-15.0) g/dL Hct 31.5 L (40.0-54.0) % MCV 97 (80-98) fL MCH 31 (27-31) pg MCHC 32 (32-36) % Plt Count 181 (150-400) K/uL Neut % (Auto) 71 H (36-66) % Lymph % (Auto) 11 L (24-44) % [place] % (Auto) 16 H (2-6) % Eos % (Auto) 1 L (2-4) % Baso % (Auto) 0 (0-1) % Sodium 141 (140-148) mmol/L Potassium 4.0 (3.6-5.2) mmol/L Chloride 105 (100-108) mmol/L Carbon Dioxide 29 (21-32) mmol/L Anion Gap 7.1 (5.0-14.0) mmol/L BUN 20 H (7-18) mg/dL Creatinine 1.5 H (0.8-1.3) mg/dL Est Cr Clr Drug Dosing 43.71 mL/min Estimated GFR (MDRD) 47 L (>60) Glucose 97 (74-106) mg/dL Lactic Acid 1.9 (0.4-2.0) mmol/L Calcium 8.6 (8.5-10.1) mg/dL Magnesium 1.6 L (1.8-2.4) mg/dL Med Orders - Current: Current Medications Acetaminophen (Tylenol) 650 mg PO Q4H PRN PRN Reason: Pain (Mild 1-3)/fever Last Admin: 12/18/16 11:48 Dose: 650 mg Acetic Acid (Acetic Acid 0.25%) 0 ml IRR BID [facility] Albuterol (Proventil Neb Soln) 2.5 mg NEB Q4H PRN PRN Reason: Shortness Of Breath/wheezing Last Admin: 12/18/16 08:57 Dose: 2.5 mg Aspirin (Ecotrin) 325 mg PO DAILY [facility] Last Admin: 12/18/16 08:30 Dose: 325 mg Cetirizine HCl (Zyrtec) 10 mg PO DAILY [facility] Last Admin: 12/18/16 08:31 Dose: 10 mg Docusate Sodium (Colace) 100 mg PO BID PRN PRN Reason: Constipation Fish Oil (Fish Oil) 2 gm PO DAILY [facility] Last Admin: 12/18/16 08:30 Dose: 2 gm Folic Acid (Folic Acid) 1 mg PO DAILY [facility] Last Admin: 12/18/16 08:30 Dose: 1 mg Gabapentin (Neurontin) 200 mg PO TID [facility] Last Admin: 12/18/16 14:30 Dose: 200 mg Cefepime HCl 1 gm/ Sodium (Chloride) 50 mls @ 100 mls/hr IV Q12H [facility] Last Admin: 12/18/16 16:38 Dose: 100 mls/hr Levofloxacin/Dextrose 500 mg/ (Premix) 100 mls @ 100 mls/hr IV Q24H [facility] Vancomycin HCl 1.4 gm/ Sodium (Chloride) 250 mls @ 167 mls/hr IV Q12H [facility] Last Admin: 12/18/16 08:29 Dose: 167 mls/hr Magnesium Sulfate 2 gm/ Premix 50 mls @ 25 mls/hr IV Q6H [facility] Stop: 12/18/16 17:59 Last Admin: 12/18/16 11:06 Dose: 25 mls/hr Lactated Ringer's (Ringers, Lactated) 1,000 mls @ 50 mls/hr IV ASDIRECTED [facility] Magnesium Hydroxide (Milk Of Magnesia) 30 ml PO Q12H PRN PRN Reason: Constipation Melatonin (Melatonin) 9 mg PO BEDTIME [facility] Last Admin: 12/17/16 21:15 Dose: 9 mg Metoprolol Tartrate (Lopressor) 50 mg PO BID [facility] Last Admin: 12/18/16 08:30 Dose: 50 mg Neomycin/Polymyxin/Hydrocortisone (Cortisporin Otic Susp) 0 ml EARBOTH QID [facility] Last Admin: 12/18/16 16:38 Dose: 2 drop Qvar 80 Mcg (Ptom) 0 puff INH BIDRT [facility] Last Admin: 12/18/16 09:01 Dose: 1 puff Ondansetron HCl (Zofran) 4 mg IV Q4H PRN PRN Reason: Nausea/Vomiting Oxycodone HCl (Oxycodone) 10 mg PO Q4H PRN PRN Reason: Pain Last Admin: 12/18/16 04:15 Dose: 10 mg Pantoprazole Sodium (Protonix) 40 mg PO ACBREAKFAST [facility] Last Admin: 12/18/16 08:30 Dose: 40 mg Advair Hfa 230mcg/ (21mcg (Ptom)) 0 each INH BIDRT [facility] Last Admin: 12/18/16 09:02 Dose: 2 each Polyethylene Glycol (Miralax) 17 gm PO DAILY PRN PRN Reason: Constipation Prednisone (Prednisone) 5 mg PO DAILY@0800 [facility] Last Admin: 12/18/16 08:30 Dose: 5 mg Sodium Chloride (Saline Flush) 10 ml FLUSH ASDIRECTED PRN PRN Reason: Keep Vein Open Discontinued Medications Acetaminophen (Tylenol) 650 mg PO NOW ONE Stop: 12/17/16 16:05 Last Admin: 12/17/16 16:41 Dose: 650 mg Ciprofloxacin/Dexamethasone (Ciprodex Otic Susp) 1 ml EARRT NOW STA Stop: 12/17/16 16:49 Last Admin: 12/17/16 18:12 Dose: Not Given Enoxaparin Sodium (Lovenox) 40 mg SUBCUT DAILY [facility] Last Admin: 12/17/16 21:14 Dose: 40 mg Enoxaparin Sodium (Lovenox) 40 mg SUBCUT BEDTIME [facility] Gadoteridol (Prohance) 20 ml IV . DIRECTED PRN PRN Reason: RADIOLOGY EXAM Stop: 12/18/16 10:15 Gadoteridol (Prohance) 20 ml IV . DIRECTED PRN PRN Reason: RADIOLOGY EXAM Stop: 12/18/16 14:30 Last Admin: 12/18/16 14:11 Dose: 20 ml Lactated Ringer's (Ringers, Lactated) 1,000 mls @ 500 mls/hr IV ASDIRECTED [facility] Last Admin: 12/17/16 15:06 Dose: 500 mls/hr Vancomycin HCl 1 gm/ Sodium (Chloride) 250 mls @ 150 mls/hr IV Q12H [facility] Last Admin: 12/18/16 11:27 Dose: Not Given Vancomycin HCl 1.4 gm/ Sodium (Chloride) 250 mls @ 150 mls/hr IV Q12H [facility] Last Admin: 12/17/16 17:22 Dose: 150 mls/hr Cefepime HCl 2 gm/ Sodium (Chloride) 100 mls @ 200 mls/hr IV Q12H [facility] Last Admin: 12/17/16 16:49 Dose: 200 mls/hr Lactated Ringer's (Ringers, Lactated) 500 mls @ 500 mls/hr IV .BOLUS [facility] Stop: 12/17/16 23:29 Last Admin: 12/17/16 20:35 Dose: 500 mls/hr Lactated Ringer's (Ringers, Lactated) 1,000 mls @ 125 mls/hr IV ASDIRECTED [facility] Last Admin: 12/18/16 07:03 Dose: 125 mls/hr Levofloxacin/Dextrose 500 mg/ (Premix) 100 mls @ 100 mls/hr IV Q48H [facility] Last Admin: 12/17/16 20:35 Dose: 100 mls/hr Vancomycin HCl 1.25 gm/ Sodium (Chloride) 250 mls @ 166.667 mls/hr IV Q24H [facility] Mometasone Furoate/Formoterol Fumar (Dulera 200-5 Mcg) 2 puff IH BIDRT [facility] Last Admin: 12/18/16 11:27 Dose: Not Given Neomycin/Polymyxin/Hydrocortisone (Cortisporin Otic Susp) 0 ml EARRT QID [facility] Last Admin: 12/17/16 18:12 Dose: 4 drop Vancomycin HCl (Vancomycin) 1 gm IV .PHARMACY TO DOSE KIMBER *Q Meaningful Use (DIS) - VTE *Q VTE Criteria *Q: - Stroke *Q Stroke Criteria *Q: - AMI *Q AMI Criteria *Q:
[2016-12-18] MEDS ORDERED: Levofloxacin/Dextrose 5%-Water 500 MG in Premix Bag 1 BAG IV SCH (21:00)
[2016-12-18] MEDS ORDERED: Enoxaparin 40 MG/0.4 ML Syringe SUBCUT SCH (21:00)
[2016-12-18] MEDS: Melatonin 3 MG Tab PO SCH (21:16)
[2016-12-19] MEDS: Cefepime 1 GM in Sodium Chloride 0.9% 50 ML IV SCH (04:58)
[2016-12-19] MEDS: Albuterol 0.083% 2.5 MG/3 ML Neb Soln NEB PRN (04:58)
[2016-12-19] MEDS: Acetaminophen 325 MG Tab PO PRN (05:09)
[2016-12-19] MEDS: oxyCODONE 5 MG Tab PO PRN (05:14)
[2016-12-19] MEDS: Pantoprazole 40 MG Tab.CR PO SCH (05:33)
[2016-12-19] MEDS: Hydrocortisone/Neomycin/Polymyxin B Otic Susp 10 ML Bottle EARBOTH SCH (05:33)
[2016-12-19] MEDS ORDERED: Furosemide 40 MG/4 ML VIAL IVPUSH ONE (05:39)
[2016-12-19] MEDS ORDERED: Furosemide 20 MG/2 ML VIAL ONE (05:41)
[2016-12-19 06:38] VITALS: BP 167/68
--- NOTE | 2016-12-19 07:41 | CONS ---
DATE OF SERVICE: 12/18/2016 REFERRING PHYSICIAN: CONSULTING PHYSICIAN: Brady Herring MD REASON FOR CONSULTATION: Evaluation of left leg wound. HISTORY OF PRESENT ILLNESS: This is a 66-year-old male, who is being treated at the [facility] with ongoing issues secondary to ulcerations of his left leg. This is basically due to 2 reasons. 1. History of sarcoidosis. 2. History of recent shingles. This has been treated with IV antibiotics. Initially the patient was recently sent to [facility] for treatment and evaluation with subsequent discharge. He was essentially bounced back from that hospital to ours with respect to his current status. The patient has currently been admitted to the hospital service and I am asked to evaluate his wound. PAST MEDICAL HISTORY: Significant include history of myocardial infarction and stents, coronary artery disease, sleep apnea, gastroesophageal reflux disease, renal insufficiency, urinary incontinence, stage III kidney issues, sarcoidosis and varicella zoster as above. SOCIAL HISTORY: He presents with his today and he is not a smoker. REVIEW OF SYSTEMS: GENERAL: The patient feels tired, weak, and concerning for fever. HEENT: He does have reported bleeding in his right ear. PULMONARY: Chronic cough, mild shortness of breath. CARDIOVASCULAR: No chest pain. GASTROINTESTINAL: Noncontributory. GENITOURINARY: Noncontributory. NEUROLOGICAL: Mild confusion. HEMATOLOGY: No symptoms. The remainder of review of systems reviewed and is negative. PHYSICAL EXAMINATION: VITAL SIGNS: Temperature 102, blood pressure 111/57, respirations 20, and pulse 90. HEENT: Pupils are equal. NECK: Supple. LUNGS: Clear. CARDIOVASCULAR: Regular rhythm and rate. ABDOMEN: Bowel sounds are positive. EXTREMITIES: The right leg looks normal. Skin on the left leg shows significantly improved wound on his left leg compared to previous examinations. DIAGNOSTIC DATA: The CT scan did not show any gross abnormalities. ASSESSMENT: Fever of unknown etiology. PLAN: The hospitalist service continues to do an excellent job managing this patient, however, my opinion is that the leg is not the etiology of the fever. Nonetheless, we will perform MRI just like to see if there is any underlying abscess or any other problem leading to this patient's condition. I will continue to follow this patient and await the results of the MRI. Brady Herring MD /[id number]
[2016-12-19] MEDS ORDERED: Acetic Acid 0.25% Solution 1,000 ML Bottle IRR SCH (09:00)
--- NOTE | 2017-02-14 08:40 | LETTER ---
02/13/2017 RE: RENNY PRATT : 1950 To Whom It May Concern: Mr. Renny Pratt is a 66-year-old gentleman, who was under my care at [facility] in [place], [place], from December 17, 2016, to December 18, 2016. Mr. Pratt was admitted with fever and sepsis. He has a complicated past medical history including a long-standing diagnosis of sarcoidosis. He has been followed for the majority of his healthcare through the [facility], including ongoing management of his sarcoidosis. Over the past few months prior to admission, he had been dealing with leg ulcers and had been seen regularly at the [facility], including a hospitalization there within one week prior to our admission in [place]. Because of the complicated nature of his past history, as well as his ongoing healthcare through the [facility], when he was transferred on December 18 to the [facility], it was felt that this was the most appropriate medical facility for transfer because of his ongoing history and recent care at [facility], as well as his longstanding history of sarcoidosis and recent complicated leg ulcers that had been followed there. If there are any further questions concerning this issue, please feel free to contact me. Sincerely, /[id number]
== END 2016-12-19 06:45 | DRG 872 ==
LOC: JP.ED 13:51 → JP.ICU 18:02 → UNDOADMIN 18:02 → JP.ICU 19:28 → UNDODISIN 12-19 06:45
PROVIDERS: ADMIT Hospitalist; ATTEND Hospitalist
DX: A41.9 Sepsis, unspecified organism (principal); R41.0 Disorientation, unspecified; D86.9 Sarcoidosis, unspecified; B02.9 Zoster without complications; H92.21 Otorrhagia, right ear; H60.91 Unspecified otitis externa, right ear; I25.10 Atherosclerotic heart disease of native coronary artery without angina pectoris; I12.9 Hypertensive chronic kidney disease with stage 1 through stage 4 chronic kidney disease, or unspecified chronic kidney disease; N18.3 Chronic kidney disease, stage 3 (moderate); Z95.5 Presence of coronary angioplasty implant and graft; I25.2 Old myocardial infarction; K21.9 Gastro-esophageal reflux disease without esophagitis; G47.30 Sleep apnea, unspecified; R32 Unspecified urinary incontinence; Z88.1 Allergy status to other antibiotic agents; Z79.82 Long term (current) use of aspirin; Z79.899 Other long term (current) drug therapy
CPT/HCPCS: 36415; 51798; 70450; 73720-26-LT; 73720-LT; 80048; 80053; 83605; 83735; 85025; 86140; 87040; 94640; 94664; 96361; 96365; 96366; 96367; 99285; 99285-25; A9270-GY; A9576; J0692; J1650; J1940; J1956; J3370; J3475; J7030; J7050; J7120